=== PATIENT | female | born 2000 | race Caucasian/White ===

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

== ENCOUNTER 2025-02-07 10:21 | Emergency (ER) | payer OTHER ==
[2025-02-07 10:31] VITALS: BMI 31.4
[2025-02-07] MEDS ORDERED: PSEUDOEPHEDRINE HCL 30 MG TABLET PO ONE (11:25)
[2025-02-07] MEDS ORDERED: METOCLOPRAMIDE HCL INJECTION 10 MG/2 ML VIAL ONE (11:32)
[2025-02-07] MEDS ORDERED: guaiFENesin/D-METHORPHAN HB 10 ML UNIT-DOSE CUPS ONE (11:32)
[2025-02-07] MEDS ORDERED: PSEUDOEPHEDRINE HCL 60 MG TABLET ONE (11:34)
[2025-02-07] MEDS: guaiFENesin/D-METHORPHAN HB 10 ML UNIT-DOSE CUPS PO ONE (12:02)
[2025-02-07] MEDS: METOCLOPRAMIDE HCL INJECTION 10 MG/2 ML VIAL IVPB ONE (12:02)
[2025-02-07] MEDS: SODIUM CHLORIDE 0.9% 500 ML INFUS.BAG IV ONE (12:02)
[2025-02-07] MEDS: PSEUDOEPHEDRINE HCL 30 MG TABLET PO ONE (12:02)
[2025-02-07 12:23] LABS: BASOPHILS # 0.01 x10^3/uL (0.01-0.08); EOSINOPHIL % 0.3 % (0.7-5.8); EOSINOPHILS # 0.01 x10^3/uL (0.04-0.36); HEMATOCRIT 40.1 % (34.1-44.9); HEMOGLOBIN 12.4 g/dL (11.2-15.7); MCHC 30.9 g/dl (32.2-35.5); MEAN CELL VOLUME 75.1 fl (79.4-94.8); MEAN PLT VOLUME 12.3 fl (9.4-12.3); MONOCYTE # 0.47 x10^3/uL (0.24-0.86); MONOCYTE % 13.1 % (4.7-12.5); PLATELET COUNT 268 x10^3/uL (182-369); RDW 15.9 % (12.1-16.5)
[2025-02-07 12:44] LABS: POTASSIUM 4.7 mmol/L (3.5-5.1)
[2025-02-07 12:48] LABS: ALBUMIN 3.4 g/dl (3.4-5.0)
[2025-02-07 12:49] LABS: BLOOD UREA NITROGEN 12.7 mg/dL (7-18); CALCIUM 9.2 mg/dL (8.5-10.1)
[2025-02-07 12:52] LABS: CREATININE 0.9 mg/dL (0.55-1.3)
[2025-02-07 12:53] LABS: BILIRUBIN,TOTAL 0.2 mg/dL (0.2-1); TOT PROT 6.9 g/dl (6.4-8.2)
[2025-02-07 13:51] VITALS: BP 101/58; PULSE 93; RESP 18; TEMP 99.6
[2025-02-07 19:38] LABS: HCV DIAGNOSTIC IN-HOUSE W/RFLX NON-REACTIVE (NONREACTIVE); HIV INTERPRETATION NEGATIVE (NEGATIVE)
== END 2025-02-07 14:35 | disposition home or self-care (01) ==
LOC: JER 10:21
PROC: 3E033GC Introduction of Other Therapeutic Substance into Peripheral Vein, Percutaneous Approach (ICD-10-PCS; principal; 2025-02-07)
DX: J10.1 Influenza due to other identified influenza virus with other respiratory manifestations (principal); R51.9 Headache, unspecified; R09.81 Nasal congestion; R05.9 Cough, unspecified; R11.0 Nausea; R19.7 Diarrhea, unspecified; R53.83 Other fatigue; H53.8 Other visual disturbances; J34.3 Hypertrophy of nasal turbinates
CPT/HCPCS: 0241U-QW; 36415; 80053; 84703; 85025; 86803; 86850; 86900; 86901; 87389; 99284-25